=== PATIENT | male | born 1985 | race Two or more races ===

== ENCOUNTER 2019-08-20 10:45 | Emergency (ER) | payer SELFPAY ==
[~2019-08-20] VITALS: Ht 185.4 cm; Wt 103.0 kg
[2019-08-20 10:52] VITALS: BP 139/91
--- NOTE | 2019-08-20 10:56 | NUR ---
ED Nurse Note: pt from home walked in c/o rt eye redness and swelling and d/c. pt awaiting ermd .
[2019-08-20 11:25] VITALS: BP 139/91
--- NOTE | 2019-08-20 11:29 | NUR ---
ER DISCHARGE NOTE: Patient is cleared to be discharged per ERMD, pt is aox4, on room air, with stable vital signs. pt was given dc and prescription instructions, pt was able to verbalize understanding, pt id band removed without complications. pt is able to ambulate with steady gait. pt took all belongings.
[2019-08-20] MEDS ORDERED: Tetracaine 0.5% Opth 4ml Soln RIGHT EYE ONE (11:30)
[2019-08-20] MEDS ORDERED: BENADRYL25 MG ORAL (12:11)
[2019-08-20] MEDS ORDERED: OLOPATADINE HCL5 ML OP (12:11)
[2019-08-20] MEDS ORDERED: Fluorescein Strips RIGHT EYE ONE (12:15)
--- NOTE | 2019-08-20 12:32 | Emergency Room Report ---
History of Present Illness General Chief Complaint: Eye Problems Source: Patient Present Illness HPI Patient is 33-year-old male presents after increased right-sided eyelid swelling. Patient also reports having some increased eye itchiness. He had onset this morning which began when he woke up. He denies any recent trauma or foreign body sensation. He denies any significant prior medical history. Some increased nasal congestion. Denies any fever. Denies sick contacts with Allergies: Coded Allergies: No Known Allergies (Unverified , 08/20/19) Patient History Past Medical History: see triage record Reviewed Nursing Documentation: PMH: Agreed; PSxH: Agreed Nursing Documentation-PMH Past Medical History: No Stated History Review of Systems All Other Systems: negative except mentioned in HPI Physical Exam Vital Signs Date Time Temp Pulse Resp B/P (MAP) Pulse Ox O2 Delivery O2 Flow Rate FiO2 08/20/19 10:49 98.4 84 18 139/91 (107) 97 Room Air General Appearance: well appearing, no apparent distress, alert, GCS 15 Head: normocephalic, atraumatic Eyes: bilateral eye PERRL, bilateral eye other - right eye conjunctival erythema no exudate ENT: hearing grossly normal, normal voice Neck: full range of motion, supple Respiratory: normal inspection, no respiratory distress, speaking full sentences Cardiovascular #1: normal inspection Gastrointestinal: normal inspection Musculoskeletal: normal inspection, back normal Neurologic: normal gait Psychiatric: mood/affect normal Skin: no rash Medical Decision Making Diagnostic Impression: Primary Impression: Allergic conjunctivitis ER Course Patient presented for right eye redness. Differential diagnosis include was not limited to foreign body, corneal ulcer, conjunctivitis, allergic reaction among others. Patient has a benign exam and does not appear to require any imaging or laboratory testing at this time. Patient has reactive pupils. Visual acuity was noted to be preserved. Fluorescein exam showed no evidence of dye uptake. Patient was given prescription for topical antihistamines as well as Benadryl. He is advised to recheck in 1 to 2 days with ophthalmology. He is advised to return if any worsening condition or other concerns. Last Vital Signs Date Time Temp Pulse Resp B/P (MAP) Pulse Ox O2 Delivery O2 Flow Rate FiO2 08/20/19 10:52 98.4 18 139/91 97 Room Air 08/20/19 10:49 84 Status: improved Disposition: HOME, SELF-CARE Condition: Stable Scripts Diphenhydramine Hcl* (BENADRYL*) 25 Mg Capsule 25 MG ORAL Q6H PRN for Itching, #30 CAP Prov: Alan Cotter MD 08/20/19 Olopatadine HCl (Olopatadine HCl) 5 Ml Drops 5 ML OP TWICE A DAY, #5 ML Prov: Alan Cotter MD 08/20/19 Referrals: NOT CHOSEN IPA/,REFERRING (PCP) Patient Instructions: Viral Conjunctivitis Alan Cotter MD Aug 20, 2019 12:32
== END 2019-08-20 12:30 | disposition home or self-care (01) ==
LOC: EMR 12:00
DX: H10.11 Acute atopic conjunctivitis, right eye (principal)
CPT/HCPCS: 99283